=== PATIENT | male | born 1960 | race Caucasian/White ===

== ENCOUNTER 2020-08-18 14:40 | Emergency (ER) | payer OTHER ==
[2020-08-18] MEDS ORDERED: HYDROCODONE/APAP 5/325 MG TAB ONE (15:06)
[2020-08-18] MEDS ORDERED: TETANUS & DIPHTHERIA TOX,ADULT 0.5 ML VIAL ONE (15:07)
--- NOTE | 2020-08-18 15:25 | RAD REPORT ---
EXAM DESCRIPTION: RAD - Hand Left 3 View - 08/18/2020 3:16 pm CLINICAL HISTORY: foreign body left thumb COMPARISON: No comparisons FINDINGS: [place] is seen in the distal soft tissues of the first digit. No underlying fracture.
[2020-08-18] MEDS ORDERED: LIDOCAINE 1% MPF 5 ML VIAL ONE ×2 (15:46→15:59)
--- NOTE | 2020-08-18 16:05 | EDPHYS ---
Physician Documentation [facility] Name: Iftikhar More Age: 60 yrs Sex: Male : 1960 Arrival Date: 08/18/2020 Time: 14:43 Bed 6 Private MD: ED Physician Wing Islas HPI: 08/18 15:04 This 60 yrs old Male presents to ER via Ambulatory with complaints of pm1 [place] in [place]. 15:04 The patient or guardian reports a puncture wound, fish hook. The complaints affect the pm1 palmar aspect of distal phalanx of left thumb. Context: The problem was sustained outdoors, resulted from fishing - saltwater. Onset: The symptoms/episode began/occurred just prior to arrival. Modifying factors: The symptoms are alleviated by nothing, the symptoms are aggravated by nothing. Associated signs and symptoms: Pertinent negatives: cyanosis distally, decreased sensation distally, numbness distally, tingling distally. Severity of symptoms: in the emergency department the symptoms are unchanged. The patient has not experienced similar symptoms in the past. Patient was wearing gloves . Historical: - Allergies: 14:56 No Known Allergies; sv - Immunization history:: Last tetanus immunization: unknown. ROS: 15:04 Constitutional: Negative for fever, chills, and weight loss, Cardiovascular: Negative pm1 for chest pain, palpitations, and edema, Respiratory: Negative for shortness of breath, cough, wheezing, and pleuritic chest pain. 15:04 Neuro: Negative for headache, weakness, numbness, tingling, and seizure. 15:04 MS/extremity: Positive for puncture, of the palmar aspect of distal phalanx of left thumb. Exam: 17:23 Constitutional: This is a well developed, well nourished patient who is awake, alert, pm1 and in no acute distress. Head/Face: Normocephalic, atraumatic. 17:23 Skin: Warm, dry with normal turgor. Normal color with no rashes, no lesions, and no evidence of cellulitis. 17:23 Cardiovascular: Exam negative for acute changes, Rate: normal, Rhythm: regular, Pulses: no pulse deficits are appreciated. 17:23 Respiratory: Exam negative for acute changes, respiratory distress, shortness of breath. 17:23 Musculoskeletal/extremity: Extremities: grossly normal except: noted in the palmar aspect of distal phalanx of left thumb: puncture, Partial fish hook present. Vital Signs: 14:55 BP 159 / 104; Pulse 81; Resp 14; Temp 97.3; Pulse Ox 98% ; Weight 97.52 kg; Height 6 sv ft. 1 in. (185.42 cm); 14:55 Body Mass Index 28.37 (97.52 kg, 185.42 cm) sv Procedures: 16:42 Foreign Body Removal: a fishhook, from the palmar aspect of distal phalanx of right pm1 thumb, by covered mushtaq with 18 gauge needle and backed the hook out. The patient tolerated the removal well, lidocaine 1% 4 mL digital block. MDM: 14:44 Patient medically screened. pm1 16:03 Data reviewed: vital signs. Data interpreted: Pulse oximetry: on room air is 98 %. pm1 Interpretation: normal. Counseling: I had a detailed discussion with the patient and/or guardian regarding: the historical points, exam findings, and any diagnostic results supporting the discharge/admit diagnosis, radiology results, the need for outpatient follow up, a hand specialist, to return to the emergency department if symptoms worsen or persist or if there are any questions or concerns that arise at home. 16:03 Special discussion: I discussed in detail with the patient the higher chance of wound pm1 infection based on his presenting history. Saltwater environment, non sterile conditions of fishing, and hook going through a glove. Educated on ABX importance and follow up with hand surgeon if signs of infection are present. 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 Exp: aa5 12/08/2021. Lot #: [id number]. } Route: IM; Site: right deltoid; 16:10 Follow up: Response: No adverse reaction aa5 15:02 Drug: [place] 5 mg-325 mg 1 tabs Route: PO; aa5 16:10 Follow up: Response: No adverse reaction aa5 15:40 Drug: Lidocaine (1 %) 5 ml {Note: administered to left thumb by MILL HAND.} Volume: 5 ml; aa5 Route: Infiltration; 16:10 Drug: Doxycycline 100 mg Route: PO; aa5 16:10 Follow up: Response: Medication administered at discharge. aa5 Disposition: 16:44 Co-signature as Attending Physician, Wing Islas MD. rn Disposition: 08/18/20 16:04 Discharged to Home. Impression: Puncture wound with foreign body of left hand - fish hook removed. - Condition is Stable. - Discharge Instructions: Puncture Wound. - Prescriptions for Doxycycline Hyclate 100 mg Oral Tablet - take 1 tablet by ORAL route every 12 hours; 20 tablet. - Medication Reconciliation Form, Thank You Letter, Antibiotic Education, Prescription Opioid Use form. - Follow up: Emergency Department; When: As needed; Reason: Worsening of condition. Follow up: Private Physician; When: 2 - 3 days; Reason: Recheck today's complaints, Continuance of care, Re-evaluation by your physician. - Problem is new. - Symptoms have improved. Signatures: Dispatcher [employer] EDAmelia Qureshi RN Wing Vasques MD MD rn Calderon, Audri RN RN aa5 Jesus Fitzgerald, MILL HAND MILL HAND pm1 Carmela Juan RN RN vg1 Corrections: (The following items were deleted from the chart) 16:15 16:04 08/18/2020 16:04 Discharged to Home. Impression: Puncture wound with foreign body vg1 of left hand - fish hook removed. Condition is Stable. Forms are Medication Reconciliation Form, Thank You Letter, Antibiotic Education, Prescription Opioid Use. Follow up: Emergency Department; When: As needed; Reason: Worsening of condition. Follow up: Private Physician; When: 2 - 3 days; Reason: Recheck today's complaints, Continuance of care, Re-evaluation by your physician. Problem is new. Symptoms have improved. pm1 17:23 15:04 The complaints affect the palmar aspect of distal phalanx of right thumb, pm1 pm1
--- NOTE | 2020-08-18 16:05 | ER ---
Nurse's Notes [facility] Name: Iftikhar More Age: 60 yrs Sex: Male : 1960 Arrival Date: 08/18/2020 Time: 14:43 Bed 6 Private MD: Diagnosis: Puncture wound with foreign body of left hand-fish hook removed Presentation: 08/18 14:55 Chief complaint: Patient states: fish hook in the left thumb, attempted to get it out sv but was unable to. Coronavirus screen: Client denies travel out of the [place] in the last 14 days. At this time, the client does not indicate any symptoms associated with coronavirus-19. Ebola Screen: No symptoms or risks identified at this time. Initial Sepsis Screen: Does the patient meet any 2 criteria? No. Patient's initial sepsis screen is negative. Does the patient have a suspected source of infection? No. Patient's initial sepsis screen is negative. Risk Assessment: Do you want to hurt yourself or someone else? Patient reports no desire to harm self or others. Onset of symptoms was August 18, 2020. 14:55 Method Of Arrival: Ambulatory sv 14:55 Acuity: KVNG 3 sv Historical: - Allergies: 14:56 No Known Allergies; sv - Immunization history:: Last tetanus immunization: unknown. Screenin:50 Abuse screen: Denies threats or abuse. Nutritional screening: No deficits noted. aa5 Tuberculosis screening: No symptoms or risk factors identified. Fall Risk None identified. Assessment: 14:50 General: Appears comfortable, Behavior is calm, cooperative. Pain: Complains of pain in aa5 distal phalanx of left thumb Pain Quality of pain is described as throbbing, Is continuous. Neuro: Level of Consciousness is awake, alert, obeys commands, Oriented to person, place, time, situation. Cardiovascular: Patient's skin is warm and dry. Respiratory: Airway is patent Respiratory effort is even, unlabored, Respiratory pattern is regular, symmetrical. GI: No signs and/or symptoms were reported involving the gastrointestinal system. : No signs and/or symptoms were reported regarding the genitourinary system. EENT: No signs and/or symptoms were reported regarding the EENT system. Derm: Skin is pink, warm \T\ dry. Fish hook noted to left thumb. Musculoskeletal: Range of motion: intact in all extremities. 16:10 Reassessment: Patient is alert, oriented x 3, equal unlabored respirations, skin aa5 warm/dry/pink. Vital Signs: 14:55 BP 159 / 104; Pulse 81; Resp 14; Temp 97.3; Pulse Ox 98% ; Weight 97.52 kg; Height 6 sv ft. 1 in. (185.42 cm); 14:55 Body Mass Index 28.37 (97.52 kg, 185.42 cm) sv ED Course: 14:43 Patient arrived in ED. ds1 14:44 Jesus Fitzgerald, ASSISTANT PROFESSOR OF THEATER is PHCP. pm1 14:44 Wing Islas MD is Attending Physician. pm1 14:50 Cristiane Perez, KAREL is Primary Nurse. aa5 14:50 Arm band placed on. aa5 14:50 Patient has correct armband on for positive identification. Bed in low position. Side aa5 rails up X 1. Adult w/ patient. 14:56 Triage completed. sv 15:16 Hand Left 3 View XRAY In Process Unspecified. EDMS 15:40 Assist provider with foreign body removal of a fish hook from left thumb Performed by aa5 Jesus Fitzgerald ASSISTANT PROFESSOR OF THEATER Patient tolerated well. 16:13 Patient did not have IV access during this emergency room visit. 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 Exp: aa5 12/08/2021. Lot #: [id number]. } Route: IM; Site: right deltoid; 16:10 Follow up: Response: No adverse reaction aa5 15:02 Drug: [place] 5 mg-325 mg 1 tabs Route: PO; aa5 16:10 Follow up: Response: No adverse reaction aa5 15:40 Drug: Lidocaine (1 %) 5 ml {Note: administered to left thumb by ASSISTANT PROFESSOR OF THEATER.} Volume: 5 ml; aa5 Route: Infiltration; 16:10 Drug: Doxycycline 100 mg Route: PO; aa5 16:10 Follow up: Response: Medication administered at discharge. aa5 Outcome: 16:04 Discharge ordered by . pm1 16:13 Discharged to home ambulatory, with significant other. aa5 16:13 Condition: good 16:13 Discharge instructions given to patient, Instructed on discharge instructions, follow up and referral plans. medication usage, Demonstrated understanding of instructions, follow-up care, medications, Prescriptions given X 1. 16:15 Patient left the ED. vg1 Signatures: Dispatcher [employer] Amelia Brewster, RN RN Cherelle Mata ds1 Cristiane Perez RN RN aa5 Jesus Fitzgerald, ASSISTANT PROFESSOR OF THEATER ASSISTANT PROFESSOR OF THEATER pm1 Carmela Juan RN RN vg1 Corrections: (The following items were deleted from the chart) 15:12 14:56 Arm band placed on sv aa5 16:44 16:13 No provider procedures requiring assistance completed. aa5 aa5
[2020-08-18] MEDS ORDERED: DOXYCYCLINE 100 MG CAP PO ONE (16:27)
[2020-08-18 20:11] VITALS: BP 159/104; TEMP 97.3; O2SAT 98
== END 2020-08-18 16:15 | disposition home or self-care (01) ==
LOC: ER 14:40
DX: S61.042A Puncture wound with foreign body of left thumb without damage to nail, initial encounter (principal); Z23 Encounter for immunization
CPT/HCPCS: 90471; 90714; 99284